=== PATIENT | female | born 1955 | race Two or more races ===

== ENCOUNTER 2016-11-16 13:26 | Emergency (ER) | payer MEDICAID, OTHER ==
[~2016-11-16] VITALS: Ht 157.5 cm; Wt 73.5 kg
[2016-11-16 13:26] VITALS: BP 116/69
== END 2016-11-16 14:01 | disposition home or self-care (01) ==
LOC: ER 13:27
DX: N90.89 Other specified noninflammatory disorders of vulva and perineum (principal)
CPT/HCPCS: A4606; Z7502; Z7610

== ENCOUNTER 2017-08-04 12:08 | Emergency (ER) | payer OTHER ==
[~2017-08-04] VITALS: Ht 160 cm; Wt 77.1 kg
[2017-08-04 12:15] VITALS: BP 124/64
== END 2017-08-04 13:07 | disposition home or self-care (01) ==
LOC: ER 12:10
DX: H61.22 Impacted cerumen, left ear (principal)
CPT/HCPCS: A4606; Z7610

== ENCOUNTER 2017-10-22 11:11 | Emergency (ER) | payer OTHER ==
[~2017-10-22] VITALS: Ht 160 cm; Wt 76.2 kg
[2017-10-22 11:11] VITALS: BP 132/59
== END 2017-10-22 11:38 | disposition home or self-care (01) ==
LOC: ER 11:12
DX: M25.561 Pain in right knee (principal)
CPT/HCPCS: 99283; A4606; Z7610

== ENCOUNTER 2020-07-05 08:52 | Inpatient (IN) | payer MEDICARE, OTHER ==
[~2020-07-05] VITALS: Ht 149.9 cm; Wt 74.8 kg
--- NOTE | 2020-07-05 09:05 | NUR ---
THE PATIENT IS BIB RA FROM HOME, CAREGIVER AND DAUGHTER ARE UNABLE TO TAKE CARE OF HER. THE PATIENT IS ALERT AND ORIENTED X2. DENIES PAIN. IN ROOM AIR AND DENIES SOB. RESPIRATION REGULAR AND UNLABORED. THE PATIENT IS PROVIDED WITH WARM BLANKET. ATTACHED ON A MONITOR. WILL CONTINUE TO MONITOR THE PATIENT.
[2020-07-05 09:55] LABS: BASOPHILS % (AUTO) 0.4 % (0.0-2.0); EOSINOPHILS % (AUTO) 0.9 % (0.0-6.0); HEMATOCRIT 38 % (33-45); HEMOGLOBIN 12.7 g/dL (11.5-14.8); LYMPHOCYTES # (AUTO) 1.4 /CMM (0.8-4.8); LYMPHOCYTES % (AUTO) 29.5 % (20.0-44.0); MEAN CORPUSCULAR HGB CONC 34 g/dl (31.0-36.0); MEAN CORPUSCULAR VOLUME 92 fL (82-100); MONOCYTES # (AUTO) 0.3 /CMM (0.1-1.30); MONOCYTES % (AUTO) 6.4 % (2.0-12.0); NEUTROPHILS # (AUTO) 2.9 /CMM (1.8-8.9); NEUTROPHILS % (AUTO) 62.8 % (43.0-81.0); PLATELET COUNT (AUTO) 174 /CMM (150-450); WHITE BLOOD COUNT (AUTO) 4.7 K/uL (4.3-11.0)
--- NOTE | 2020-07-05 10:14 | NUR ---
covid swab done and sent to the lab
[2020-07-05 10:31] LABS: CALCIUM, SERUM 8.3 mg/dL (8.5-10.1); CREATININE 0.9 mg/dL (0.6-1.3); POTASSIUM 3.5 mmol/L (3.5-5.1)
[2020-07-05 10:42] LABS: ALBUMIN 3.7 g/dL (3.4-5.0); BILIRUBIN,DIRECT 0.1 mg/dL (0.0-0.2); BILIRUBIN,TOTAL 0.6 mg/dL (0.2-1.0); TOTAL PROTEIN, SERUM 7.6 g/dL (6.4-8.2)
[2020-07-05] MEDS ORDERED: ATOR40TA PO (10:45)
[2020-07-05] MEDS ORDERED: OLAN5TAB3 PO (10:45)
[2020-07-05] MEDS ORDERED: ICOS1CAP PO (10:45)
[2020-07-05] MEDS ORDERED: MEMA14CA5 PO (10:45)
[2020-07-05] MEDS ORDERED: QUET300T2 PO (10:45)
[2020-07-05 10:54] LABS: BILIRUBIN,URINE Negative (NEGATIVE); COLOR,URINE YELLOW (YELLOW); LEUKOCYTE ESTERASE ,URINE Trace (NEGATIVE); NITRITE, URINE Negative (NEGATIVE); PH,URINE 6.5 (5.0-8.0); PROTEIN,URINE Negative (NEGATIVE); UGLUCOSE Negative (NEGATIVE); UROBILINOGEN,URINE 0.2 EU/dL (0.2)
[2020-07-05 11:12] LABS: RBC,URINE 0-2 /HPF (0-2); WBC,URINE 0-2 /HPF (0-3)
[2020-07-05 11:13] LABS: BACTERIA,URINE None seen /HPF (None Seen)
[2020-07-05 11:14] LABS: SQUAMOUS EPITHELIAL CELL,UR Few /HPF (None Seen); YEAST,URINE Rare /HPF (None Seen)
--- NOTE | 2020-07-05 12:36 | NUR ---
RECIEVED A CALL BACK FROM [facility]. [facility] WILL COME IN FOR PSYCH EVAL ON PATIENT.
--- NOTE | 2020-07-05 14:25 | NUR ---
CALLED [facility], WILL BE COMING IN FOR CRISIS EVAL OF PATIENT.
--- NOTE | 2020-07-05 16:29 | NUR ---
NURSING SUP GAVE GPS BED 213-A.
--- NOTE | 2020-07-05 16:57 | NUR ---
Report given to GUNNAR Mosher.Transfered the patient to GPS unit per hospital protocol. Patient left ER in stable condition.
--- NOTE | 2020-07-05 17:24 | NUR ---
Dr. Pearson made aware of the admission and gave orders.
[2020-07-05] MEDS ORDERED: ZOLPIDEM TARTRATE 5 MG TABLET PO PRN (17:30)
[2020-07-05] MEDS ORDERED: MAG HYDROX/AL HYDROX/SIMETH 30 ML UDC PO PRN (17:30)
[2020-07-05] MEDS ORDERED: MAGNESIUM HYDROXIDE 30 ML UDC PO PRN (17:30)
[2020-07-05] MEDS ORDERED: BLOOD SUGAR DIAGNOSTIC 1 EACH STRIP IN ONE (17:30)
[2020-07-05] MEDS ORDERED: ACETAMINOPHEN 325 MG TABLET PO PRN (17:30)
[2020-07-05 17:39] VITALS: BP 111/81
--- NOTE | 2020-07-05 18:47 | NUR ---
GPS/RN-ADMISSION NOTES ADMITTED 65 Y.O MALAGASY FEMALE PATIENT FROM [facility]. PATIENT IS UNDER THE CARE OF DR. VIVEROS ( PSYCHIATRIST) MADE AWARE OF THE ADMISSION WITH ORDERS. UPON FACE TO FACE ASSESSMENT WITH THE PATIENT ,PATIENT IS ALERT ORIENTED TO NAME ONLY,CONFUSED,PACING ANXIOUS ,UNABLE TO FOCUS ON THE CONVERSATION VERY POOR HISTORIAN.PATIENT IS AMBULATORY STEADY GAIT.SKIN INTACT,MRSA DONE AND CONTRABAND DONE.PATIENT WAS ORIENTED IN THE UNIT AND UNIT POLICIES.PATIENTS NEEDS FREQUENT REDIRECTIONS.PATIENT DENIES SI/HI AT THIS TIME.PATIENT'S DTR GILBERT WAS MADE AWARE OF THE ADMISSION. WILL ENDORSE TO INCOMING NURSE FOR THE CONTINUITY OF ADMISSION PROCESS AND CONTINUITY OF CARE.
[2020-07-05] MEDS: LORAZEPAM 0.5 MG TABLET PO PRN (19:46)
[2020-07-05 20:05] VITALS: BP 136/93
--- NOTE | 2020-07-06 06:45 | NUR ---
RECEIVED PATIENT WALKING IN THE HALLWAY AND FOLLOWING THE NURSES AROUND. SHE WAS WAS TALKING LOUDLY AND NOT ABLE TO STOP MOVING, SHE COULDN'T SIT IN A CHAIR EXCEPT FOR MOMENT WALKING ABOUT...aTIVAN GIVEN AND EFFECTIVE TO CALM HER DOWN AND THEN SHE WENT TO BED AND SLEPT 8 HOURS THIS NIGHT.
[2020-07-06 08:00] VITALS: BP 112/70
[2020-07-06 10:02] LABS: ALBUMIN 4.2 g/dL (3.4-5.0); BILIRUBIN,TOTAL 0.8 mg/dL (0.2-1.0); CALCIUM, SERUM 8.7 mg/dL (8.5-10.1); CREATININE 0.8 mg/dL (0.6-1.3); POTASSIUM 3.6 mmol/L (3.5-5.1); TOTAL PROTEIN, SERUM 8.6 g/dL (6.4-8.2)
[2020-07-06 10:05] LABS: CHOLESTEROL 174 mg/dL (<200); HDL CHOLESTEROL 59 mg/dL (40-60); LDL 98 mg/dL (0-99); TRIGLYCERIDES 108 mg/dL (30-150)
[2020-07-06] MEDS ORDERED: TRAZODONE 50 MG TABLET PO PRN (15:00)
--- NOTE | 2020-07-06 15:45 | NUR ---
rn informed beto sepulveda and otilio to contact pt's dtr. eliazar delgado.
[2020-07-06 16:00] VITALS: BP 105/69
--- NOTE | 2020-07-06 16:30 | NUR ---
confused and wandering about unit.vs stable. no complaints offered.no acute distress.
[2020-07-06] MEDS: LORAZEPAM 0.5 MG TABLET PO PRN (17:32)
[2020-07-06] MEDS: MEMANTINE HCL 5 MG TABLET PO SCH (17:33)
--- NOTE | 2020-07-06 17:33 | NUR ---
GIVEN ATIVAN FOR AGITATION.
[2020-07-06] MEDS ORDERED: MEMANTINE HCL 14 MG PO SCH (18:00)
[2020-07-06 20:05] VITALS: BP 139/81
[2020-07-06] MEDS: DIVALPROEX SODIUM 125 MG CAP.SPRINK PO SCH (20:06)
--- NOTE | 2020-07-06 20:10 | NUR ---
RN NOTE RECEIVED PATIENT AMBULATING IN THE HALLWAY, A & O X 1, CONFUSED, FORGETFUL, WANDERS ROOM TO ROOM, NON REDIRECTABLE AT TIMES, UNCOOPERATIVE, EASILY AGITATED, RESTLESS, ANXIOUS, HYPERVERBAL, LABILE, COMBATIVE, SPEAKS OCCITAN WITH MINIMAL SAMOAN. NO ACUTE DISTRESS NOTED. NO C/O PAIN VERBALIZED BY THE PATIENT. CONTINENT. DENIES SI/HI AT THIS TIME. SAFETY MEASURES IN PLACE. WILL CONTINUE TO MONITOR Q 15 MIN FOR SAFETY, MOOD & BEHAVIOR.
[2020-07-06] MEDS: CEPHALEXIN MONOHYDRATE 500 MG CAPSULE PO SCH (20:12)
[2020-07-06 20:14] VITALS: BP 139/81
--- NOTE | 2020-07-06 21:16 | NUR ---
RN NOTE STATUE MAKER CAME TO DRAW BLOOD FOR STAT ORDER OF PROCALCITONIN, PER STATUE MAKER PATIENT IS A HARD STICK & WAS UNABLE TO DRAW BLOOD AT THIS TIME. STATUE MAKER WILL TRY TO DRAW BLOOD LATER.
[2020-07-06] MEDS: QUETIAPINE FUMARATE 25 MG TABLET PO SCH (21:19)
--- NOTE | 2020-07-06 21:20 | NUR ---
RN NOTE PATIENT REFUSED SKIN ASSESSMENT TONIGHT X 3. PT. IS EASILY AGITATED, RESTLESS, ANXIOUS & NON COMPLAINT. VISIBLE SKIN AREAS APPEARS TO BE CLEAR & INTACT. WILL CONTINUE TO MONITOR.
[2020-07-06] MEDS: DONEPEZIL 5 MG TABLET PO SCH (21:24)
[2020-07-06] MEDS: ATORVASTATIN 40 MG TABLET PO SCH (21:51)
--- NOTE | 2020-07-06 22:15 | NUR ---
RN NOTE: DAUGHTER GILBERT CALLED PATIENT'S DAUGHTER GILBERT CALLED AGAIN TO GET AN UPDATE ABOUT HER MOTHER, INQUIRING ABOUT PATIENT'S DISCHARGE. INFORMED GILBERT THAT PATIENT IS BEEN HERE ABOUT A DAY ONLY, NEW PSYCH MEDS HAS BEEN STARTED BY DR. GUNDERSON. PT. NEEDS LOTS OF ENCOURAGEMENT WITH MEDS, MEALS & ADL CARE. PATIENT IS VERY CONFUSED, HYPERVERBAL, ANXIOUS & NON REDIRECTABLE AT TIMES. GILBERT WOULD LIKE TO DISCUSS DC PLANNING WITH DR. GUNDERSON. DTR LIVES IN [place] & WANTS TO BE IN [place] BEFORE HER MOTHER GETS DISCHARGED SO SHE CAN TAKE CARE OF HER MOTHER. WILL LEAVE A NOTE FOR DR. GUNDERSON & ENDORSE TO AM RN TO FOLLOW UP WITH DR. GUNDERSON.
--- NOTE | 2020-07-07 00:40 | NUR ---
RN NOTE PATIENT IS SLEEPING COMFORTABLY AT THIS TIME.
[2020-07-07 08:00] VITALS: BP 105/75
[2020-07-07] MEDS: CEPHALEXIN MONOHYDRATE 500 MG CAPSULE PO SCH ×2 (08:43→22:01)
[2020-07-07] MEDS: MEMANTINE HCL 5 MG TABLET PO SCH ×2 (08:43→17:21)
[2020-07-07] MEDS: DIVALPROEX SODIUM 125 MG CAP.SPRINK PO SCH ×2 (08:43→21:59)
[2020-07-07] MEDS: LORAZEPAM 0.5 MG TABLET PO PRN (13:29)
--- NOTE | 2020-07-07 15:57 | NUR ---
GIVEN ATIVAN FOR AGITATION.
[2020-07-07 16:00] VITALS: BP 123/74
[2020-07-07 20:00] VITALS: BP 123/77
[2020-07-07 20:05] VITALS: BP 123/77
[2020-07-07] MEDS: ATORVASTATIN 40 MG TABLET PO SCH (22:23)
[2020-07-07] MEDS: DONEPEZIL 5 MG TABLET PO SCH (22:32)
[2020-07-07] MEDS: QUETIAPINE FUMARATE 25 MG TABLET PO SCH (22:43)
--- NOTE | 2020-07-08 06:40 | NUR ---
RN NOTE PATIENT SLEPT WELL THROUGH OUT THE NIGHT. WILL CONTINUE TO MONITOR.
[2020-07-08 08:00] VITALS: BP 136/91
[2020-07-08] MEDS: DIVALPROEX SODIUM 125 MG CAP.SPRINK PO SCH ×2 (08:45→20:55)
[2020-07-08] MEDS: CEPHALEXIN MONOHYDRATE 500 MG CAPSULE PO SCH ×2 (08:45→20:55)
[2020-07-08] MEDS: MEMANTINE HCL 5 MG TABLET PO SCH ×2 (08:46→16:50)
[2020-07-08] MEDS: LORAZEPAM 0.5 MG TABLET PO PRN ×2 (08:49→19:56)
--- NOTE | 2020-07-08 08:50 | NUR ---
RN NOTE: ANXIETY PT EXHIBITING INCREASED ANXIETY AND AGITATION. SELECTIVE WITH MEDICATIONS. UNTRUSTING OF STAFF AND PLAN OF CARE. CONFUSED AND NEEDS FREQUENT REDIRECTION AND REASSURANCE. MEDICATED WITH ATIVAN PO PRN
[2020-07-08 16:00] VITALS: BP 114/90
--- NOTE | 2020-07-08 16:28 | NUR ---
Point of Contact: SW called the pt.s daughter, Lin Peralta [phone] to gather collateral information. Per Lni, the pt. has recently been diagnosed with Lewy Body dementia. Per Lin, pt. has a caregiver. Pt.'s Psychiatrist is Dr.Betsy Villarreal [phone] and the pt. is seen by "any MD" at [facility] [[address] [place] [address] ] per Lin.
--- NOTE | 2020-07-08 16:29 | NUR ---
Initial Discharge Plan: The pt. currently resides at [address] [place], [place] [id number] [place] [id number] with her daughter, Lin Peralta [phone]. Pt. stated she wants to return home when ready for discharge. will continue to collaborate with [facility] attending Psychiatrist and pt.'s daughter, Lin Peralta [phone] to ensure safe & proper discharge planning.
[2020-07-08 20:00] VITALS: BP 120/80
--- NOTE | 2020-07-08 20:01 | NUR ---
RN NOTES: ANXIETY PT.C/O FEELING ANXIOUS PACING IN HALLWAY , ATIVAN 1 MG PO PRN GIVEN, WILL CONTINUE TO MONITOR.
[2020-07-08] MEDS: QUETIAPINE FUMARATE 25 MG TABLET PO SCH (21:38)
[2020-07-08] MEDS: DONEPEZIL 5 MG TABLET PO SCH (21:38)
[2020-07-08] MEDS: ATORVASTATIN 40 MG TABLET PO SCH (21:38)
[2020-07-09 08:00] VITALS: BP 128/56
[2020-07-09] MEDS: DIVALPROEX SODIUM 125 MG CAP.SPRINK PO SCH ×3 (10:03→20:40)
[2020-07-09] MEDS: CEPHALEXIN MONOHYDRATE 500 MG CAPSULE PO SCH ×3 (10:03→20:41)
[2020-07-09] MEDS: MEMANTINE HCL 5 MG TABLET PO SCH ×2 (10:03→16:56)
[2020-07-09] MEDS: LORAZEPAM 0.5 MG TABLET PO PRN (10:03)
[2020-07-09 16:00] VITALS: BP 101/67
[2020-07-09 20:41] VITALS: BP 126/92
[2020-07-09] MEDS: DONEPEZIL 5 MG TABLET PO SCH (21:47)
[2020-07-09] MEDS: ATORVASTATIN 40 MG TABLET PO SCH (21:47)
[2020-07-09] MEDS: QUETIAPINE FUMARATE 25 MG TABLET PO SCH (21:47)
[2020-07-10 08:00] VITALS: BP 122/78
[2020-07-10] MEDS: CEPHALEXIN MONOHYDRATE 500 MG CAPSULE PO SCH ×2 (08:38→21:50)
[2020-07-10] MEDS: DIVALPROEX SODIUM 125 MG CAP.SPRINK PO SCH ×2 (08:38→21:51)
[2020-07-10] MEDS: MEMANTINE HCL 5 MG TABLET PO SCH ×2 (08:38→16:12)
[2020-07-10] MEDS: LORAZEPAM 0.5 MG TABLET PO PRN ×2 (08:42→21:51)
--- NOTE | 2020-07-10 08:42 | NUR ---
RN NOTE: ANXIETY AND AGITATION PT EXHIBITING INCREASED ANXIETY. PACING THE HALLWAY. ENTERING OTHER PATIENT'S ROOMS. MEDICATED WITH ATIVAN 1MG PO PRN. WILL CONT TO MONITOR EFFECTIVENESS.
--- NOTE | 2020-07-10 13:46 | NUR ---
Family Contact: SW called pts daughter, Lin ([phone]), and provided her with information regarding the pts treatment and progress. SW stated that the pt will be discharged on Wednesday and pts daughter stated that she will start looking at tickets since she lives in [place]. She stated that the pt lives with a caregiver 12/10 so she always has care. Pts daughter requested that the medications get sent to the Pharmacy and provided the info to the SW: [facility] on [facility] [address] ([phone]).
[2020-07-10 16:00] VITALS: BP 124/81
[2020-07-10] MEDS: DONEPEZIL 5 MG TABLET PO SCH (21:50)
[2020-07-10] MEDS: ATORVASTATIN 40 MG TABLET PO SCH (21:50)
[2020-07-10] MEDS: QUETIAPINE FUMARATE 25 MG TABLET PO SCH (21:51)
--- NOTE | 2020-07-10 21:56 | NUR ---
Pt is agitated and anxious. Roaming into other patients room and trying to open doors. Least restrictive measures ineffective. Ativan 1 mg po prn given as ordered. Will continue to monitor.
[2020-07-11 08:00] VITALS: BP 106/70
[2020-07-11] MEDS: DIVALPROEX SODIUM 125 MG CAP.SPRINK PO SCH ×2 (09:36→21:24)
[2020-07-11] MEDS: CEPHALEXIN MONOHYDRATE 500 MG CAPSULE PO SCH (09:36)
[2020-07-11] MEDS: MEMANTINE HCL 5 MG TABLET PO SCH ×2 (09:36→16:39)
[2020-07-11 16:00] VITALS: BP 120/74
[2020-07-11 20:29] VITALS: BP 127/72
[2020-07-11] MEDS: QUETIAPINE FUMARATE 25 MG TABLET PO SCH (21:27)
[2020-07-11] MEDS: ATORVASTATIN 40 MG TABLET PO SCH (21:27)
[2020-07-11] MEDS: DONEPEZIL 5 MG TABLET PO SCH (21:27)
--- NOTE | 2020-07-12 06:39 | NUR ---
GPS RN CLOSING NOTES: PATIENT SLEEPING COMFORTABLY IN BED. PATIENT SLEPT 8HRS THIS SHIFT. NO S/S OF DISTRESS. RESPIRATION EVEN AND UNLABORED WITH EQUAL RISE AND FALL OF THE CHEST ON ROOM AIR. ALL PATIENT CARE NEEDS HAVE BEEN MET ANTICIPATED. BED IN LOWEST POSITION AND LOCKED, SIDE RAIL UP X2. WILL CONTINUE TO MONITOR FOR SAFETY, MOOD AND BEHAVIOR AND ENDORSE TO AM SHIFT.
[2020-07-12 08:00] VITALS: BP 112/63
[2020-07-12] MEDS: DIVALPROEX SODIUM 125 MG CAP.SPRINK PO SCH ×2 (08:48→20:12)
[2020-07-12] MEDS: MEMANTINE HCL 5 MG TABLET PO SCH ×2 (08:48→16:27)
--- NOTE | 2020-07-12 09:17 | NUR ---
Family Contact: SOLANGE called pts daughter, Lin ([phone]), and she stated that she will arrive the following day around 1pm. Pts daughter expressed once again that she would appreciate it if the prescriptions were faxed to the pharmacy ahead of time. SW stated that she will include that information in her discharge plan.
--- NOTE | 2020-07-12 11:30 | NUR ---
Family Contact: Pts daughter, Lin ([phone]), called the SW and asked the SW to remind the nurses to send the prescriptions to the pharmacy so that the pt does not miss any meds after she is discharged. SW stated that she would make sure of it and confirmed the details of the pts discharge.
[2020-07-12 16:00] VITALS: BP 115/55
[2020-07-12 20:24] VITALS: BP 105/63
[2020-07-12] MEDS: DONEPEZIL 5 MG TABLET PO SCH (21:09)
[2020-07-12] MEDS: QUETIAPINE FUMARATE 25 MG TABLET PO SCH (21:09)
[2020-07-12] MEDS: ATORVASTATIN 40 MG TABLET PO SCH (21:09)
[2020-07-13 08:00] VITALS: BP 118/62
[2020-07-13] MEDS: DIVALPROEX SODIUM 125 MG CAP.SPRINK PO SCH (08:31)
[2020-07-13] MEDS: MEMANTINE HCL 5 MG TABLET PO SCH (08:31)
--- NOTE | 2020-07-13 08:52 | NUR ---
Dr. Pearson gave an order to D/C hold and D/C home and to follow up with the psych and medical doctors. Addendum: 07/13/20 at 1120 by CARITO MELO RN Osmin Ceballos made aware of the discharge and will come to pick remover the pt.
--- NOTE | 2020-07-13 09:56 | NUR ---
Lakhwinder Winkler DIRECTOR OF DISTRICT OFFICE made aware of the idischarge and said ok for discharge.
--- NOTE | 2020-07-13 12:20 | NUR ---
GPS/RN-NOTES DR. VIVEROS ( PSYCHIATRIST) GAVE DISCHARGE ORDER ALSO JUAN DEL TORO ( HUMIDIFIER MAINTENANCE WORKER) MADE AWARE WITH ORDERS.PATIENT WAS DISCHARGE TO HER HOME WITH HER INFORMATICA MDM DEVELOPER .IAN HUNT PICK HER UP VIA PRIVATE CAR. PATIENT DID NOT VERBALIZE SI/HI,DENIES VISUAL/AUDITORY HALLUCINATIONS AT THE TIME OF DISCHARGE. PATIENT LEFT THE UNIT IN STABLE CONDITION A/O X2 AMBULATORY STEADY GAIT. ACCOMPANIED BY THE CNC MAINTENANCE TECHNICIAN AND ONE [employer] SHARPSHOOTER STAFF TO THE LOBBY FOR SAFETY.ALL BELONGINGS WAS RETURN BACK TO THE PATIENT EXCEPT FOR THE UPPER DENTURE DUE TO UNABLE TO LOCATE. CNC MAINTENANCE TECHNICIAN SAID TO THE DTR GILBERT THAT THE HOSPITAL WILL CALL HER IF WE FIND THE DENTURE .DISCHARGE RX WAS ENDORSED TO THE DTR AND MASK WAS PROVIDED TO THE PATIENT .
--- NOTE | 2020-07-15 08:22 | NUR ---
Discharge Note: Pt was discharged on July 13 to her [place] located at [address], [address], [place] [address]; ([phone]). Pt has 12/10 caregiving, Meghann Knight ([phone]). Pts daughter, Lin ([phone]), picked up the pt at 1pm. Upon discharge, pt appeared to be alert and oriented x3 (time, place, self). Pt denied both suicidal and homicidal ideation as well as auditory and visual hallucinations. Pt presented with a euthymic mood and presents with a calm affect. Pt appeared to be well groomed and appropriately dressed. Pt will continue to follow up with senior ui ux developer, Dr. Joseph, located at [address] [place] [address]; and psychiatrist, Dr. Denson, located at [address], [address] [address]; ([phone]). Multidisciplinary exit care form was done, completed, signed and a copy was given to the pt.
== END 2020-07-13 12:20 | disposition home or self-care (01) | DRG 881 ==
LOC: ER 08:53 → GPS 16:43
PROVIDERS: ADMIT Psychiatry & Neurology Psychiatry; ATTEND Nurse Practitioner Acute Care
DX: F32.9 Major depressive disorder, single episode, unspecified (principal); J18.9 Pneumonia, unspecified organism; N39.0 Urinary tract infection, site not specified; F29 Unspecified psychosis not due to a substance or known physiological condition; F41.9 Anxiety disorder, unspecified; G31.83 Neurocognitive disorder with Lewy bodies; F02.80 Dementia in other diseases classified elsewhere, unspecified severity, without behavioral disturbance, psychotic disturbance, mood disturbance, and anxiety; D32.9 Benign neoplasm of meninges, unspecified; B96.89 Other specified bacterial agents as the cause of diseases classified elsewhere; Z68.33 Body mass index [BMI] 33.0-33.9, adult; E66.9 Obesity, unspecified; I67.2 Cerebral atherosclerosis; R45.1 Restlessness and agitation
CPT/HCPCS: 36415; 70450-TC; 71045-TC; 80048-TC; 80053-TC; 80061-TC; 80076-TC; 81001; 82962-TC; 85025-TC; 87081-TC; 87086-TC; 97112-TC; 97116-TC; 97530-TC; C9803